=== PATIENT | female | born 1990 | race African-American/Black ===

== ENCOUNTER 2018-11-13 16:40 | Emergency (ER) | payer MEDICAID ==
[~2018-11-13] VITALS: Ht 172.7 cm; Wt 59.0 kg
[2018-11-13 17:14] VITALS: BP 112/73
[2018-11-13] MEDS ORDERED: FLUORESCEIN SODIUM OPHTH 1 EA STRIP ONE (17:42)
[2018-11-13] MEDS: FLUORESCEIN SODIUM OPHTH 1 EA STRIP OP ONE (18:05)
[2018-11-13] MEDS: TETRACAINE HCL 0.5% OPHTALMIC 15 ML BOTTLE OP ONE (18:05)
== END 2018-11-13 18:48 | disposition home or self-care (01) ==
LOC: ER 16:40
DX: H10.12 Acute atopic conjunctivitis, left eye (principal)